=== PATIENT | male | born 1940 | race Caucasian/White ===

== ENCOUNTER → 2024-06-06 | Outpatient (CLI) | payer MEDICARE ==
[2024-06-06 12:25] LABS: CHOLESTEROL 134 mg/dL (<200); HDL CHOLESTEROL 61 mg/dL (29-71); LDL DIRECT 65 mg/dL (0-99); TRIGLYCERIDES 91 mg/dL (30-200)
== END | disposition home or self-care (01) ==
LOC: LAB 08:30
PROVIDERS: ATTEND Internal Medicine Cardiovascular Disease
DX: E78.5 Hyperlipidemia, unspecified (principal)
CPT/HCPCS: 36415; 80061